=== PATIENT | female | born 1985 | race Caucasian/White ===

== ENCOUNTER 2017-11-07 21:50 | Emergency (ER) | payer MEDICARE, MEDICAID ==
[~2017-11-07] VITALS: Ht 162.6 cm; Wt 69.5 kg
[~2017-11-07 21:50] MED LIST: BENZ30CR2 PV; BUS15T PO; BUSP10TA11 PO; LOXA10CA PO; LURA20TA PO; MIRT30TA PO; PREN1TAB23 PO
[2017-11-07 22:11] LABS: CLARITY,URINE CLOUDY (Clear); COLOR,URINE RED (Yellow); URINE HCG NEGATIVE (NEG)
[2017-11-07 22:14] LABS: UA COLLECTION TYPE CLN CATCH MIDSTREAM
[2017-11-07 22:26] LABS: BACTERIA,URINE FEW /HPF (Neg); RBC,URINE TNTC /HPF (0-2); SQUAMOUS EPITHELIAL CELL,UR MODERATE /LPF (FEW)
[2017-11-07 22:27] LABS: WBC,URINE 50-100 /HPF (0-4)
[2017-11-07 22:45] LABS: BASOPHILS # (AUTO) 0.1 X10'3 (0-0.2); BASOPHILS % (AUTO) 0.7 % (0-1); EOSINOPHILS # (AUTO) 0.2 X10'3 (0-0.9); EOSINOPHILS % (AUTO) 2.5 % (0-6); HEMATOCRIT 40.9 % (35.0-45.0); HEMOGLOBIN 13.9 g/dl (12.0-16.0); LYMPHOCYTES % (AUTO) 26.5 % (21-51); MEAN CORPUSCULAR HEMOGLOBIN 30.1 PG (27.0-31.0); MEAN CORPUSCULAR HGB CONC 33.9 % (33.0-36.5); MEAN CORPUSCULAR VOLUME 88.6 FL (78-98); MEAN PLATELET VOLUME 7.6 FL (7.4-10.4); MONOCYTES # (AUTO) 0.6 X10'3 (0-0.9); NEUTROPHILS # (AUTO) 4.8 X10'3 (1.8-7.7); NEUTROPHILS % (AUTO) 62.3 % (42-75); PLATELET COUNT 260 X10'3 (140-440); RED BLOOD COUNT 4.62 X10'6 (4.20-5.60); RED CELL DISTRIBUTION WIDTH 14.5 % (11.5-14.5); WHITE BLOOD COUNT 7.7 X10'3 (4.5-11.0)
[2017-11-07 22:50] VITALS: BP 149/100
[2017-11-07 22:56] LABS: ALANINE AMINOTRANSFERASE 65 U/L (12-78); ALBUMIN 3.4 G/DL (3.4-5.0); ALBUMIN/GLOBULIN RATIO 0.8 (1.1-1.5); ALKALINE PHOSPHATASE 76 IU/L (46-116); ANION GAP 7 (8-16); ASPARTATE AMINO TRANSFERASE 53 U/L (10-37); BILIRUBIN,TOTAL 0.6 MG/DL (0.1-1.0); BLOOD UREA NITROGEN 9 MG/DL (7-18); BUN/CREATININE RATIO 9.1 (6.6-38.0); CALCIUM 8.5 MG/DL (8.5-10.1); CHLORIDE 105 MMOL/L (99-107); CREATININE 0.99 MG/DL (0.40-0.90); GLUCOSE 115 MG/DL (70-104); POTASSIUM 3.6 MMOL/L (3.5-5.1); SODIUM 142 MMOL/L (135-145); TOTAL CARBON DIOXIDE 29.9 MMOL/L (24-32); TOTAL PROTEIN 7.8 G/DL (6.4-8.2); eGFR 64 ML/MIN
[2017-11-07] MEDS ORDERED: azithromycin 250mg tablet PO ONE (23:00)
[2017-11-07] MEDS ORDERED: ciprofloxacin 250mg tablet PO ONE (23:00)
[2017-11-07] MEDS ORDERED: CIPR-259 PO (23:07)
== END 2017-11-07 23:36 | disposition home or self-care (01) ==
LOC: ER 21:50
DX: N39.0 Urinary tract infection, site not specified (principal); R31.9 Hematuria, unspecified; I10 Essential (primary) hypertension; E11.9 Type 2 diabetes mellitus without complications; F17.200 Nicotine dependence, unspecified, uncomplicated; F15.10 Other stimulant abuse, uncomplicated; Z56.0 Unemployment, unspecified; Z88.0 Allergy status to penicillin; Z79.899 Other long term (current) drug therapy
CPT/HCPCS: 36415; 80053; 81001; 81025; 85025; 87088; 87491; 99284

== ENCOUNTER 2017-12-25 09:29 | Emergency (ER) | payer MEDICARE, MEDICAID ==
[~2017-12-25] VITALS: Ht 578.2 cm; Wt 68.2 kg
[~2017-12-25 09:29] MED LIST changes: -BENZ30CR2 PV; -BUS15T PO; -BUSP10TA11 PO; +CEPH250T PO; -LOXA10CA PO; -LURA20TA PO; -MIRT30TA PO; +NO HOME MEDS; -PREN1TAB23 PO
[2017-12-25 10:13] LABS: BASOPHILS # (AUTO) 0.1 X10'3 (0-0.2); BASOPHILS % (AUTO) 0.6 % (0-1); EOSINOPHILS # (AUTO) 0.1 X10'3 (0-0.9); EOSINOPHILS % (AUTO) 1.3 % (0-6); HEMATOCRIT 43.3 % (35.0-45.0); HEMOGLOBIN 14.7 g/dl (12.0-16.0); LYMPHOCYTES # (AUTO) 2.5 X10'3 (1.1-4.8); LYMPHOCYTES % (AUTO) 26.2 % (21-51); MEAN CORPUSCULAR HEMOGLOBIN 30.1 PG (27.0-31.0); MEAN CORPUSCULAR HGB CONC 33.9 % (33.0-36.5); MEAN CORPUSCULAR VOLUME 88.7 FL (78-98); MEAN PLATELET VOLUME 7.4 FL (7.4-10.4); MONOCYTES # (AUTO) 0.1 X10'3 (0-0.9); MONOCYTES % (AUTO) 1.5 % (2-12); NEUTROPHILS # (AUTO) 6.8 X10'3 (1.8-7.7); NEUTROPHILS % (AUTO) 70.4 % (42-75); PLATELET COUNT 443 X10'3 (140-440); RED BLOOD COUNT 4.88 X10'6 (4.20-5.60); RED CELL DISTRIBUTION WIDTH 14.8 % (11.5-14.5); WHITE BLOOD COUNT 9.7 X10'3 (4.5-11.0)
[2017-12-25 10:15] LABS: PARTIAL THROMBOPLASTIN TIME 26 SECONDS (22-32); PROTHROMBIN TIME 10.4 SECONDS (9.0-12.0)
[2017-12-25 10:20] LABS: ALANINE AMINOTRANSFERASE 40 U/L (12-78); ALBUMIN/GLOBULIN RATIO 0.8 (1.1-1.5); ALKALINE PHOSPHATASE 87 IU/L (46-116); ANION GAP 12 (8-16); ASPARTATE AMINO TRANSFERASE 31 U/L (10-37); BILIRUBIN,TOTAL 0.5 MG/DL (0.1-1.0); BLOOD UREA NITROGEN 15 MG/DL (7-18); CALCIUM 9.2 MG/DL (8.5-10.1); CHLORIDE 101 MMOL/L (99-107); CREATININE 0.94 MG/DL (0.40-0.90); GLUCOSE 103 MG/DL (70-104); POTASSIUM 3.7 MMOL/L (3.5-5.1); SODIUM 139 MMOL/L (135-145); TOTAL CARBON DIOXIDE 25.9 MMOL/L (24-32); TOTAL PROTEIN 9.3 G/DL (6.4-8.2); eGFR 68 ML/MIN
[2017-12-25 10:30] VITALS: BP 152/102
[2017-12-25 10:56] LABS: TOTAL CELLS COUNTED 100
[2017-12-25 10:57] LABS: PLATELET ESTIMATE NORMAL
== END 2017-12-25 10:36 | disposition left against medical advice (07) ==
LOC: ER 09:30
DX: F41.9 Anxiety disorder, unspecified (principal); R53.1 Weakness; I10 Essential (primary) hypertension; E11.9 Type 2 diabetes mellitus without complications; R07.9 Chest pain, unspecified; R06.02 Shortness of breath; F15.90 Other stimulant use, unspecified, uncomplicated; Z98.890 Other specified postprocedural states; Z88.0 Allergy status to penicillin; Z88.1 Allergy status to other antibiotic agents; Z88.8 Allergy status to other drugs, medicaments and biological substances; Z79.899 Other long term (current) drug therapy; Z56.0 Unemployment, unspecified
CPT/HCPCS: 36415; 71045; 80053; 84484; 85025; 85610; 85730; 93005; 99285

== ENCOUNTER 2018-01-22 12:20 | Emergency (ER) | payer MEDICARE, MEDICAID ==
[~2018-01-22] VITALS: Ht 167.6 cm; Wt 69.0 kg
[2018-01-22 14:04] VITALS: BP 139/88
[2018-01-22 14:16] LABS: CLARITY,URINE SLIGHTLY CLOUDY (Clear); COLOR,URINE YELLOW (Yellow); GLUCOSE, URINE NEGATIVE (Neg); KETONES,URINE >=80 mg/dl (Neg); LEUKOCYTE ESTERASE ,URINE NEGATIVE (Neg); NITRITES, URINE NEGATIVE (Neg); OCCULT BLOOD,URINE NEGATIVE (Neg); PROTEIN,URINE 30 mg/dl (Neg); URINE HCG NEGATIVE (NEG); UROBILINOGEN,URINE >=8.0 E.U/dL (0.2-1.0)
[2018-01-22 14:18] LABS: UA COLLECTION TYPE CLN CATCH MIDSTREAM
[2018-01-22] MEDS ORDERED: CefTRIAXone 250MG IM Kit w/LIDOcaine IM ONE (14:30)
[2018-01-22] MEDS ORDERED: azithromycin 250mg tablet PO ONE (14:30)
[2018-01-22 14:34] LABS: RBC,URINE 0-2 /HPF (0-2)
[2018-01-22 14:35] LABS: BACTERIA,URINE NONE SEEN /HPF (Neg)
[2018-01-22 14:36] LABS: CAL OXALATE CRYSTALS 2+ /HPF (NEGATIVE); MUCUS STRANDS MANY /LPF (Neg); SQUAMOUS EPITHELIAL CELL,UR MODERATE /LPF (FEW)
[2018-01-22 14:37] LABS: URINE AMPHETAMINE SCREEN POSITIVE (Neg); URINE BARBITUATE SCREEN NEGATIVE (Neg); URINE BENZODIAZEPINES SCREEN NEGATIVE (Neg); URINE CANNABINOID SCREEN NEGATIVE (Neg); URINE COCAINE SCREEN NEGATIVE (Neg); URINE METHADONE SCREEN NEGATIVE (Neg); URINE OPIATE SCREEN NEGATIVE (Neg); URINE PHENCYCLIDINE SCREEN NEGATIVE (Neg)
== END 2018-01-22 14:46 | disposition home or self-care (01) ==
LOC: ER 12:20
DX: N89.8 Other specified noninflammatory disorders of vagina (principal); I10 Essential (primary) hypertension; E11.9 Type 2 diabetes mellitus without complications; F15.90 Other stimulant use, unspecified, uncomplicated; Z56.0 Unemployment, unspecified; Z88.0 Allergy status to penicillin; Z88.1 Allergy status to other antibiotic agents; Z79.2 Long term (current) use of antibiotics
CPT/HCPCS: 80305; 81001; 81025; 87088; 87210; 96372; 99284; J0696

== ENCOUNTER → 2018-04-06 | Emergency (ER) | payer MEDICARE, MEDICAID ==
[~2018-04-06] VITALS: Ht 162.6 cm; Wt 70.0 kg
[~2018-04-06] MED LIST changes: +DOXY100C43 PO; +DOXYCYCLINE 100MG CAPSULE PO STA; +IBUP-1985 PO; +[UNRECOGNIZED DRUG - CODE] PO; +azithromycin 250mg tablet PO STA
[2018-04-06 22:47] VITALS: BP 149/107
[2018-04-06 23:12] LABS: CLARITY,URINE SLIGHTLY CLOUDY (Clear); COLOR,URINE YELLOW (Yellow); GLUCOSE, URINE NEGATIVE (Neg); KETONES,URINE TRACE mg/dl (Neg); LEUKOCYTE ESTERASE ,URINE SMALL (Neg); NITRITES, URINE NEGATIVE (Neg); OCCULT BLOOD,URINE TRACE-INTACT (Neg); PH,URINE 6.5 (4.8-8.0); PROTEIN,URINE TRACE mg/dl (Neg)
[2018-04-06 23:13] LABS: BASOPHILS # (AUTO) 0.1 X10'3 (0-0.2); BASOPHILS % (AUTO) 1.6 % (0-1); EOSINOPHILS # (AUTO) 0.1 X10'3 (0-0.9); EOSINOPHILS % (AUTO) 2.5 % (0-6); HEMATOCRIT 39.6 % (35.0-45.0); HEMOGLOBIN 13.5 g/dl (12.0-16.0); LYMPHOCYTES # (AUTO) 1.9 X10'3 (1.1-4.8); LYMPHOCYTES % (AUTO) 36.6 % (21-51); MEAN CORPUSCULAR HEMOGLOBIN 29.7 PG (27.0-31.0); MEAN CORPUSCULAR HGB CONC 34.1 % (33.0-36.5); MEAN PLATELET VOLUME 8.1 FL (7.4-10.4); MONOCYTES # (AUTO) 0.4 X10'3 (0-0.9); MONOCYTES % (AUTO) 8.5 % (2-12); NEUTROPHILS # (AUTO) 2.6 X10'3 (1.8-7.7); NEUTROPHILS % (AUTO) 50.8 % (42-75); PLATELET COUNT 311 X10'3 (140-440); RED BLOOD COUNT 4.55 X10'6 (4.20-5.60); RED CELL DISTRIBUTION WIDTH 15.1 % (11.5-14.5); WHITE BLOOD COUNT 5.2 X10'3 (4.5-11.0)
[2018-04-06 23:15] LABS: UA COLLECTION TYPE CLN CATCH MIDSTREAM
[2018-04-06 23:31] LABS: ALANINE AMINOTRANSFERASE 94 U/L (12-78); ALBUMIN 3.3 G/DL (3.4-5.0); ALBUMIN/GLOBULIN RATIO 0.7 (1.1-1.5); ALKALINE PHOSPHATASE 80 IU/L (46-116); ANION GAP 6 (8-16); ASPARTATE AMINO TRANSFERASE 81 U/L (10-37); BILIRUBIN,TOTAL 0.3 MG/DL (0.1-1.0); BLOOD UREA NITROGEN 12 MG/DL (7-18); BUN/CREATININE RATIO 13.8 (6.6-38.0); CALCIUM 8.6 MG/DL (8.5-10.1); CHLORIDE 104 MMOL/L (99-107); CREATININE 0.87 MG/DL (0.40-0.90); GLUCOSE 95 MG/DL (70-104); SODIUM 138 MMOL/L (135-145); TOTAL CARBON DIOXIDE 28.1 MMOL/L (24-32); TOTAL PROTEIN 7.8 G/DL (6.4-8.2); eGFR 74 ML/MIN
[2018-04-07 00:47] LABS: BACTERIA,URINE 2+ /HPF (Neg); SQUAMOUS EPITHELIAL CELL,UR MODERATE /LPF (FEW)
[2018-04-07 00:48] LABS: MUCUS STRANDS FEW /LPF (Neg)
== END | disposition home or self-care (01) ==
LOC: ER 18:32
DX: N39.0 Urinary tract infection, site not specified (principal); I10 Essential (primary) hypertension; E11.9 Type 2 diabetes mellitus without complications; F15.90 Other stimulant use, unspecified, uncomplicated; Z56.0 Unemployment, unspecified; Z88.0 Allergy status to penicillin; Z79.899 Other long term (current) drug therapy
CPT/HCPCS: 36415; 80053; 81001; 85025; 87088; 99284

== ENCOUNTER 2018-06-14 21:25 | Emergency (ER) | payer MEDICARE, MEDICAID ==
[~2018-06-14] VITALS: Ht 162.6 cm; Wt 59.6 kg
[~2018-06-14 21:25] MED LIST changes: -DOXY100C43 PO; -DOXYCYCLINE 100MG CAPSULE PO STA; -azithromycin 250mg tablet PO STA
[2018-06-14 23:04] LABS: CLARITY,URINE CLOUDY (Clear); COLOR,URINE RED (Yellow); URINE HCG NEGATIVE (NEG)
[2018-06-14 23:15] LABS: UA COLLECTION TYPE CLN CATCH MIDSTREAM
[2018-06-14 23:16] LABS: SQUAMOUS EPITHELIAL CELL,UR MODERATE /LPF (FEW)
[2018-06-14 23:17] LABS: BACTERIA,URINE FEW /HPF (Neg); RBC,URINE TNTC /HPF (0-2)
[2018-06-14] MEDS ORDERED: normal saline 1000ml 1,000 ML IV ONE (23:38)
[2018-06-14] MEDS ORDERED: CefTRIAXone 2gm/D5W 50ml 50 ML IV ONE (23:40)
[2018-06-14] MEDS ORDERED: normal saline 1000ML IV soln IVB ONE (23:40)
[2018-06-15 00:52] LABS: EOSINOPHILS # (AUTO) 0.2 X10'3 (0-0.9); EOSINOPHILS % (AUTO) 1.8 % (0-6)
[2018-06-15 01:05] LABS: PARTIAL THROMBOPLASTIN TIME 25 SECONDS (22-32)
[2018-06-15 01:13] LABS: BASOPHILS # (AUTO) 0.1 X10'3 (0-0.2); BASOPHILS % (AUTO) 1.7 % (0-1); HEMATOCRIT 46.1 % (35.0-45.0); HEMOGLOBIN 15.9 g/dl (12.0-16.0); LYMPHOCYTES # (AUTO) 2.7 X10'3 (1.1-4.8); MEAN CORPUSCULAR HEMOGLOBIN 30.7 PG (27.0-31.0); MEAN CORPUSCULAR HGB CONC 34.4 % (33.0-36.5); MEAN CORPUSCULAR VOLUME 89.2 FL (78-98); MONOCYTES # (AUTO) 0.6 X10'3 (0-0.9); MONOCYTES % (AUTO) 7.1 % (2-12); NEUTROPHILS % (AUTO) 58.4 % (42-75); PLATELET COUNT 331 X10'3 (140-440); RED BLOOD COUNT 5.17 X10'6 (4.20-5.60); RED CELL DISTRIBUTION WIDTH 13.7 % (11.5-14.5); WHITE BLOOD COUNT 8.6 X10'3 (4.5-11.0)
[2018-06-15] MEDS ORDERED: CEPH250T PO (01:32)
[2018-06-15 01:47] VITALS: BP 112/71
== END 2018-06-15 01:52 | disposition home or self-care (01) ==
LOC: ER 21:26
DX: N30.91 Cystitis, unspecified with hematuria (principal); I10 Essential (primary) hypertension; E11.9 Type 2 diabetes mellitus without complications; F15.90 Other stimulant use, unspecified, uncomplicated; Z88.0 Allergy status to penicillin; Z79.2 Long term (current) use of antibiotics; Z79.899 Other long term (current) drug therapy; Z56.0 Unemployment, unspecified
CPT/HCPCS: 36415; 74176; 81001; 81025; 83605; 85025; 85610; 85730; 87040; 87088; 96365; 96366; 99284; J0696; J7030

== ENCOUNTER 2018-11-02 23:16 | Emergency (ER) | payer MEDICARE, MEDICAID ==
[~2018-11-02] VITALS: Ht 162.6 cm; Wt 60.5 kg
[2018-11-03 00:19] VITALS: BP 162/111
--- NOTE | 2018-11-03 01:15 | NUR ---
PT GIVEN WARM BLANKET, AWAITING ER MD
[2018-11-03] MEDS ORDERED: TETanus/Pertussis (Acell)/Diphther VAC/PF (Tdap-Adult) 0.5ml syringe IM ONE (01:50)
[2018-11-03] MEDS ORDERED: acetaminophen 325mg tablet PO ONE (01:50)
[2018-11-03] MEDS ORDERED: LIDOcaine 1.5% w/epinephrine 1:200,000 5ml ampul IJ ONE (01:50)
[2018-11-03] MEDS ORDERED: bacitracin 15gm ointment TP ONE (01:50)
[2018-11-03] MEDS ORDERED: CLIN150C8 PO (01:50)
[2018-11-03] MEDS ORDERED: clindamycin 150mg capsule PO ONE (01:50)
[2018-11-03] MEDS ORDERED: LIDOcaine 1% w/epiNEPHrine 1:200,000 30ml vial IM ONE (02:00)
--- NOTE | 2018-11-03 03:25 | NUR ---
pt refusing the tetnus booster, states she does not want a shot at this time. reports she had a tetnuw w in the past 10 yrs. had it eighter at [facility] or [facility].
== END 2018-11-03 03:43 | disposition home or self-care (01) ==
LOC: ER 23:16
DX: L02.412 Cutaneous abscess of left axilla (principal); I10 Essential (primary) hypertension; E11.9 Type 2 diabetes mellitus without complications; F15.90 Other stimulant use, unspecified, uncomplicated; Z88.0 Allergy status to penicillin; Z79.2 Long term (current) use of antibiotics; Z79.899 Other long term (current) drug therapy; Z56.0 Unemployment, unspecified; Z90.5 Acquired absence of kidney
CPT/HCPCS: 10060; 90715; 99284; J3490

== ENCOUNTER 2018-12-17 15:35 | Emergency (ER) | payer MEDICARE, MEDICAID ==
[~2018-12-17] VITALS: Ht 162.6 cm; Wt 63.6 kg
[~2018-12-17 15:35] MED LIST changes: +CLIN150C8 PO
[2018-12-17 15:48] VITALS: BP 140/99
[2018-12-17] MEDS ORDERED: LORazepam 1 MG tablet PO ONE (15:55)
[2018-12-17] MEDS ORDERED: triamcinolone acetonide 40mg/ml inj IM ONE (15:55)
[2018-12-17] MEDS ORDERED: diphenhydrAMINE 25mg capsule PO ONE (15:55)
[2018-12-17] MEDS ORDERED: LORA10TA7 PO (15:58)
[2018-12-17] MEDS ORDERED: PRED10TA23 PO (15:58)
== END 2018-12-17 16:21 | disposition home or self-care (01) ==
LOC: ER 15:36
DX: F41.9 Anxiety disorder, unspecified (principal); L23.7 Allergic contact dermatitis due to plants, except food; I10 Essential (primary) hypertension; E11.9 Type 2 diabetes mellitus without complications; F15.90 Other stimulant use, unspecified, uncomplicated; Z56.0 Unemployment, unspecified; Z88.0 Allergy status to penicillin
CPT/HCPCS: 96372; 99284; J3301; Q0163

== ENCOUNTER 2018-12-26 14:58 | Emergency (ER) | payer MEDICARE, MEDICAID ==
[~2018-12-26] VITALS: Ht 165.1 cm; Wt 65.0 kg
[~2018-12-26 14:58] MED LIST changes: +LORA10TA7 PO; +PRED10TA23 PO
[2018-12-26 15:23] VITALS: BP 125/54
[2018-12-26] MEDS ORDERED: LIDOcaine 1% w/epiNEPHrine 1:200,000 30ml vial IM ONE (17:20)
[2018-12-26] MEDS ORDERED: sulfamethoxazole/trimethoprim DS (800/160mg) tablet PO ONE (17:20)
[2018-12-26] MEDS ORDERED: SULF1TAB49 PO (18:25)
== END 2018-12-26 18:36 | disposition home or self-care (01) ==
LOC: ER 14:58
DX: H00.031 Abscess of right upper eyelid (principal); F15.90 Other stimulant use, unspecified, uncomplicated; I10 Essential (primary) hypertension; E11.9 Type 2 diabetes mellitus without complications; F17.200 Nicotine dependence, unspecified, uncomplicated; F11.90 Opioid use, unspecified, uncomplicated; Z56.0 Unemployment, unspecified; Z98.890 Other specified postprocedural states; Z88.0 Allergy status to penicillin; Z79.2 Long term (current) use of antibiotics; Z79.899 Other long term (current) drug therapy
CPT/HCPCS: 67700; 99284; J3490

== ENCOUNTER 2018-12-26 23:50 | Emergency (ER) | payer MEDICARE, MEDICAID ==
[~2018-12-26] VITALS: Ht 162.6 cm; Wt 61.3 kg
[~2018-12-26 23:50] MED LIST changes: +SULF1TAB49 PO
[2018-12-26 23:52] VITALS: BP 171/123
== END 2018-12-27 00:47 | disposition home or self-care (01) ==
LOC: ER 23:50
DX: H05.011 Cellulitis of right orbit (principal); F15.10 Other stimulant abuse, uncomplicated; I10 Essential (primary) hypertension; E11.9 Type 2 diabetes mellitus without complications; Z86.14 Personal history of Methicillin resistant Staphylococcus aureus infection; F11.90 Opioid use, unspecified, uncomplicated; Z88.0 Allergy status to penicillin; Z79.899 Other long term (current) drug therapy; Z59.0 Homelessness; Z56.0 Unemployment, unspecified
CPT/HCPCS: 99283

== ENCOUNTER 2019-03-17 22:30 | Emergency (ER) | payer MEDICARE, MEDICAID ==
[~2019-03-17] VITALS: Ht 162.6 cm; Wt 56.8 kg
[~2019-03-17 22:30] MED LIST changes: -PRED10TA23 PO; -SULF1TAB49 PO
--- NOTE | 2019-03-18 01:28 | NUR ---
pt reports she has anxiety and will pick at her face. She smokes heroin with last use this morning.
[2019-03-18 03:17] LABS: BASOPHILS # (AUTO) 0.1 X10'3 (0-0.2); BASOPHILS % (AUTO) 0.7 % (0-1); EOSINOPHILS # (AUTO) 0.3 X10'3 (0-0.9); EOSINOPHILS % (AUTO) 3.6 % (0-6); HEMOGLOBIN 12.9 g/dl (12.0-16.0); LYMPHOCYTES # (AUTO) 2.6 X10'3 (1.1-4.8); LYMPHOCYTES % (AUTO) 37.4 % (21-51); MEAN CORPUSCULAR HEMOGLOBIN 30.1 PG (27.0-31.0); MEAN CORPUSCULAR HGB CONC 33.9 g/dL (33.0-36.5); MEAN CORPUSCULAR VOLUME 88.8 FL (78-98); MEAN PLATELET VOLUME 7.7 FL (7.4-10.4); MONOCYTES # (AUTO) 0.8 X10'3 (0-0.9); MONOCYTES % (AUTO) 11.1 % (2-12); NEUTROPHILS # (AUTO) 3.3 X10'3 (1.8-7.7); NEUTROPHILS % (AUTO) 47.2 % (42-75); PLATELET COUNT 267 X10'3 (140-440); RED BLOOD COUNT 4.28 X10'6 (4.20-5.60); RED CELL DISTRIBUTION WIDTH 14.6 % (11.5-14.5); WHITE BLOOD COUNT 7.1 X10'3 (4.5-11.0)
[2019-03-18 03:28] LABS: ALANINE AMINOTRANSFERASE 117 U/L (12-78); ALBUMIN 3.3 G/DL (3.4-5.0); ALBUMIN/GLOBULIN RATIO 0.8 (1.1-1.5); ALKALINE PHOSPHATASE 72 IU/L (46-116); ANION GAP 8 (8-16); ASPARTATE AMINO TRANSFERASE 79 U/L (10-37); BILIRUBIN,TOTAL 0.4 MG/DL (0.1-1.0); BLOOD UREA NITROGEN 14 MG/DL (7-18); BUN/CREATININE RATIO 21.5 (6.6-38.0); CALCIUM 8.3 MG/DL (8.5-10.1); CHLORIDE 104 MMOL/L (99-107); CREATININE 0.65 MG/DL (0.40-0.90); GLUCOSE 91 MG/DL (70-104); POTASSIUM 3.8 MMOL/L (3.5-5.1); SODIUM 139 MMOL/L (135-145); TOTAL CARBON DIOXIDE 26.7 MMOL/L (24-32); TOTAL PROTEIN 7.2 G/DL (6.4-8.2); eGFR > 90 ML/MIN
[2019-03-18 03:39] LABS: MAGNESIUM 1.7 MG/DL (1.5-2.4)
[2019-03-18 04:15] VITALS: BP 167/116
[2019-03-18] MEDS ORDERED: clindamycin 150mg capsule PO ONE (04:15)
[2019-03-18 04:25] LABS: URINE HCG NEGATIVE (NEG)
[2019-03-18 04:34] LABS: CLARITY,URINE SLIGHTLY CLOUDY (Clear); COLOR,URINE YELLOW (Yellow); GLUCOSE, URINE NEGATIVE (Neg); KETONES,URINE NEGATIVE (Neg); LEUKOCYTE ESTERASE ,URINE TRACE (Neg); NITRITES, URINE NEGATIVE (Neg); OCCULT BLOOD,URINE NEGATIVE (Neg); PROTEIN,URINE TRACE mg/dl (Neg)
[2019-03-18 04:45] LABS: UA COLLECTION TYPE VOIDED
[2019-03-18 04:49] LABS: RBC,URINE 0-2 /HPF (0-2); SQUAMOUS EPITHELIAL CELL,UR MANY /LPF (FEW)
[2019-03-18 04:50] LABS: BACTERIA,URINE 2+ /HPF (Neg); MUCUS STRANDS MODERATE /LPF (Neg)
[2019-03-18] MEDS ORDERED: NITR100C6 PO (05:04)
[2019-03-18] MEDS ORDERED: CLIN300C70 PO (05:04)
[2019-03-18] MEDS ORDERED: MUPI22OI30 TOP (05:04)
[2019-03-22] MEDS ORDERED: CLIN300C54 PO (03:14)
[2019-03-22] MEDS ORDERED: IBUP-1986 PO (03:14)
== END 2019-03-18 05:26 | disposition home or self-care (01) ==
LOC: ER 22:31
DX: R22.0 Localized swelling, mass and lump, head (principal); N39.0 Urinary tract infection, site not specified; F19.10 Other psychoactive substance abuse, uncomplicated; R42 Dizziness and giddiness; I10 Essential (primary) hypertension; E11.9 Type 2 diabetes mellitus without complications; F41.9 Anxiety disorder, unspecified; F15.90 Other stimulant use, unspecified, uncomplicated; F11.90 Opioid use, unspecified, uncomplicated; Z56.0 Unemployment, unspecified; Z86.14 Personal history of Methicillin resistant Staphylococcus aureus infection; Z59.0 Homelessness; Z88.0 Allergy status to penicillin; Z79.2 Long term (current) use of antibiotics; Z79.899 Other long term (current) drug therapy
CPT/HCPCS: 36415; 71045; 80053; 81001; 81025; 83735; 83880; 84484; 85025; 85610; 93005; 99284

== ENCOUNTER → 2019-03-22 | Emergency (ER) | payer MEDICARE, MEDICAID ==
[~2019-03-22] VITALS: Ht 160 cm; Wt 56.8 kg
[~2019-03-22] MED LIST changes: +CLIN300C54 PO; +CLIN300C70 PO; +IBUP-1986 PO; +MUPI22OI30 TOP; +NITR100C6 PO; +clindamycin 150mg capsule PO ONE; +ibuprofen tablet 400 MG TABLET PO ONE
[2019-03-22 03:03] VITALS: BP 165/109
== END | disposition home or self-care (01) ==
LOC: ER 03:00
DX: K02.9 Dental caries, unspecified (principal); K08.89 Other specified disorders of teeth and supporting structures; I10 Essential (primary) hypertension; E11.9 Type 2 diabetes mellitus without complications; F15.90 Other stimulant use, unspecified, uncomplicated; F11.90 Opioid use, unspecified, uncomplicated; Z59.0 Homelessness; Z56.0 Unemployment, unspecified; Z86.14 Personal history of Methicillin resistant Staphylococcus aureus infection; Z88.0 Allergy status to penicillin; Z79.899 Other long term (current) drug therapy
CPT/HCPCS: 99283

== ENCOUNTER 2021-05-16 12:19 | Emergency (ER) | payer MEDICARE, MEDICAID ==
[~2021-05-16] VITALS: Ht 162.6 cm; Wt 65.0 kg
[~2021-05-16 12:19] MED LIST changes: -CEPH250T PO; -CLIN300C54 PO; -CLIN300C70 PO; -MUPI22OI30 TOP; -clindamycin 150mg capsule PO ONE; -ibuprofen tablet 400 MG TABLET PO ONE
[2021-05-16 12:23] VITALS: BP 154/106
[2021-05-16] MEDS ORDERED: IBUP-1984 PO (13:32)
[2021-05-16] MEDS ORDERED: CLIN300C70 PO (13:32)
== END 2021-05-16 13:20 | disposition home or self-care (01) ==
LOC: ER 12:19
DX: L03.211 Cellulitis of face (principal); Z87.81 Personal history of (healed) traumatic fracture; I10 Essential (primary) hypertension; J45.909 Unspecified asthma, uncomplicated; E11.9 Type 2 diabetes mellitus without complications; F15.90 Other stimulant use, unspecified, uncomplicated; F11.90 Opioid use, unspecified, uncomplicated; Z87.440 Personal history of urinary (tract) infections; Z86.14 Personal history of Methicillin resistant Staphylococcus aureus infection; Z72.89 Other problems related to lifestyle; Z56.0 Unemployment, unspecified; Z59.00 Homelessness unspecified; Z90.5 Acquired absence of kidney; Z79.2 Long term (current) use of antibiotics; Z79.899 Other long term (current) drug therapy; Z88.0 Allergy status to penicillin
CPT/HCPCS: 99283

== ENCOUNTER 2022-05-17 20:36 | Emergency (ER) | payer MEDICARE, MEDICAID ==
[~2022-05-17] VITALS: Ht 162.6 cm; Wt 59.1 kg
[~2022-05-17 20:36] MED LIST changes: -CLIN150C8 PO; -IBUP-1985 PO; -IBUP-1986 PO; -LORA10TA7 PO; -NITR100C6 PO; -[UNRECOGNIZED DRUG - CODE] PO
[2022-05-17 20:51] VITALS: BP 165/117
[2022-05-17] MEDS ORDERED: nitrofuran monohydrate/nitrofuran macrocrysal 100 MG (MacroBID) capsule PO ONE (22:10)
[2022-05-17] MEDS ORDERED: NITR100C6 PO (22:13)
--- NOTE | 2022-05-17 22:29 | NUR ---
po med given
== END 2022-05-17 22:29 | disposition home or self-care (01) ==
LOC: ER 20:37
DX: N39.0 Urinary tract infection, site not specified (principal); I10 Essential (primary) hypertension; E11.9 Type 2 diabetes mellitus without complications; F41.9 Anxiety disorder, unspecified; F15.90 Other stimulant use, unspecified, uncomplicated; F11.90 Opioid use, unspecified, uncomplicated; Z88.0 Allergy status to penicillin; Z59.00 Homelessness unspecified; Z56.0 Unemployment, unspecified; Z98.890 Other specified postprocedural states
CPT/HCPCS: 99283

== ENCOUNTER 2022-07-30 01:47 | Emergency (ER) | payer MEDICARE, MEDICAID ==
[~2022-07-30] VITALS: Ht 162.6 cm; Wt 65.1 kg
[~2022-07-30 01:47] MED LIST changes: +NITR100C6 PO
[2022-07-30 02:02] VITALS: BP 148/101
[2022-07-30] MEDS ORDERED: SULF1TAB49 PO (02:57)
[2022-07-30] MEDS ORDERED: CEPH-585 PO (02:57)
== END 2022-07-30 03:08 | disposition home or self-care (01) ==
LOC: ER 01:49
DX: L02.01 Cutaneous abscess of face (principal); L03.211 Cellulitis of face; I10 Essential (primary) hypertension; E11.9 Type 2 diabetes mellitus without complications; F41.9 Anxiety disorder, unspecified; Z86.14 Personal history of Methicillin resistant Staphylococcus aureus infection; Z59.00 Homelessness unspecified; Z56.0 Unemployment, unspecified; Z88.0 Allergy status to penicillin; Z79.1 Long term (current) use of non-steroidal anti-inflammatories (NSAID); Z79.2 Long term (current) use of antibiotics; Z86.2 Personal history of diseases of the blood and blood-forming organs and certain disorders involving the immune mechanism
CPT/HCPCS: 99284

== ENCOUNTER 2022-11-06 22:45 | Emergency (ER) | payer MEDICARE, MEDICAID ==
[~2022-11-06] VITALS: Ht 162.6 cm; Wt 65.9 kg
[~2022-11-06 22:45] MED LIST changes: +CEPH-585 PO
[2022-11-06] MEDS ORDERED: cloNIDine 0.1 mg tablet PO ONE (23:15)
[2022-11-06] MEDS ORDERED: LISI10TA27 PO (23:16)
[2022-11-06] MEDS ORDERED: CIPR2.5D21 LEFTEYE (23:16)
[2022-11-06 23:49] VITALS: BP 150/103
== END 2022-11-06 23:58 | disposition home or self-care (01) ==
LOC: ER 22:46
DX: H00.015 Hordeolum externum left lower eyelid (principal); I10 Essential (primary) hypertension; E11.9 Type 2 diabetes mellitus without complications; F15.20 Other stimulant dependence, uncomplicated; Z88.0 Allergy status to penicillin; Z59.00 Homelessness unspecified; Z56.0 Unemployment, unspecified
CPT/HCPCS: 99283

== ENCOUNTER 2023-02-03 01:02 | Emergency (ER) | payer MEDICAID, MEDICARE ==
[~2023-02-03 01:02] MED LIST changes: +LISI10TA27 PO
[2023-02-04] MEDS ORDERED: CLIN-214 PO (00:55)
[2023-02-04] MEDS ORDERED: SULF1TAB49 PO (01:00)
== END 2023-02-03 01:13 | disposition left against medical advice (07) ==
LOC: ER 01:03
DX: B99.9 Unspecified infectious disease (principal); Z53.21 Procedure and treatment not carried out due to patient leaving prior to being seen by health care provider

== ENCOUNTER 2023-02-04 00:02 | Emergency (ER) | payer MEDICAID ==
[~2023-02-04] VITALS: Ht 162.6 cm; Wt 61.4 kg
[2023-02-04 00:12] VITALS: BP 133/89
[2023-02-04] MEDS ORDERED: CLIN-214 PO (00:55)
[2023-02-04] MEDS ORDERED: clindamycin 150mg capsule PO ONE (00:55)
[2023-02-04] MEDS ORDERED: SULF1TAB49 PO (01:00)
[2023-02-04] MEDS ORDERED: sulfamethoxazole/trimethoprim DS (800/160mg) tablet PO ONE (01:00)
--- NOTE | 2023-02-04 01:00 | NUR ---
CLINDAMYCIN HELD PER MD. PT REPORTS ALLERGY TO [facility].
== END 2023-02-04 01:17 | disposition home or self-care (01) ==
LOC: ER 00:03
DX: L02.411 Cutaneous abscess of right axilla (principal); I10 Essential (primary) hypertension; E11.9 Type 2 diabetes mellitus without complications; F15.90 Other stimulant use, unspecified, uncomplicated; Z88.0 Allergy status to penicillin; Z88.1 Allergy status to other antibiotic agents
CPT/HCPCS: 10060; 99283; 99284

== ENCOUNTER 2023-02-28 05:48 | Emergency (ER) | payer MEDICAID ==
[~2023-02-28] VITALS: Ht 162.6 cm; Wt 61.4 kg
[~2023-02-28 05:48] MED LIST changes: +CLIN-214 PO
[2023-02-28 05:54] VITALS: BP 182/98; PULSE 94; TEMP 98.9; O2SAT 100
[2023-02-28 06:30] LABS: CLARITY,URINE CLOUDY (Clear); COLOR,URINE YELLOW (Yellow); GLUCOSE, URINE NEGATIVE (Neg); KETONES,URINE NEGATIVE (Neg); LEUKOCYTE ESTERASE ,URINE LARGE (Neg); NITRITES, URINE NEGATIVE (Neg); OCCULT BLOOD,URINE SMALL (Neg); PROTEIN,URINE TRACE mg/dl (Neg)
[2023-02-28 06:36] LABS: URINE HCG NEGATIVE (NEG)
[2023-02-28 06:45] LABS: UA COLLECTION TYPE CLN CATCH MIDSTREAM
[2023-02-28 06:46] LABS: SQUAMOUS EPITHELIAL CELL,UR MANY /LPF (FEW)
[2023-02-28 06:50] LABS: BACTERIA,URINE 2+ /HPF (Neg)
[2023-02-28 06:51] LABS: WBC,URINE 50-100 /HPF (0-4)
--- NOTE | 2023-02-28 06:56 | NUR ---
URINE REJECTED FOR CULTURE
[2023-02-28 07:16] LABS: BASOPHILS % (AUTO) 0.7 % (0-1); EOSINOPHILS # (AUTO) 0.2 X10'3 (0-0.9); EOSINOPHILS % (AUTO) 3.8 % (0-6); HEMATOCRIT 38.8 % (35.0-45.0); HEMOGLOBIN 13.2 g/dl (12.0-16.0); LYMPHOCYTES # (AUTO) 2.2 X10'3 (1.1-4.8); LYMPHOCYTES % (AUTO) 42.8 % (21-51); MEAN CORPUSCULAR HEMOGLOBIN 31.3 PG (27.0-31.0); MEAN CORPUSCULAR HGB CONC 33.9 g/dL (33.0-36.5); MEAN CORPUSCULAR VOLUME 92.1 FL (78-98); MEAN PLATELET VOLUME 7.4 FL (7.4-10.4); MONOCYTES # (AUTO) 0.4 X10'3 (0-0.9); MONOCYTES % (AUTO) 8.9 % (2-12); NEUTROPHILS # (AUTO) 2.2 X10'3 (1.8-7.7); NEUTROPHILS % (AUTO) 43.8 % (42-75); PLATELET COUNT 176 X10'3 (140-440); RED BLOOD COUNT 4.21 X10'6 (4.20-5.60); RED CELL DISTRIBUTION WIDTH 14.6 % (11.5-14.5); WHITE BLOOD COUNT 5.1 X10'3 (4.5-11.0)
[2023-02-28 07:33] LABS: ALANINE AMINOTRANSFERASE 357 U/L (12-78); ALBUMIN 3.4 G/DL (3.4-5.0); ALBUMIN/GLOBULIN RATIO 0.7 (1.1-1.5); ALKALINE PHOSPHATASE 75 IU/L (46-116); ANION GAP 8 (8-16); ASPARTATE AMINO TRANSFERASE 226 U/L (10-37); BILIRUBIN,TOTAL 0.3 MG/DL (0.1-1.0); BLOOD UREA NITROGEN 16 MG/DL (7-18); BUN/CREATININE RATIO 23.5 (10.0-20.0); CALCIUM 8.5 MG/DL (8.5-10.1); CHLORIDE 105 MMOL/L (99-107); CREATININE 0.68 MG/DL (0.40-0.90); LIPASE 73 U/L (73-393); POTASSIUM 3.8 MMOL/L (3.5-5.1); SODIUM 140 MMOL/L (135-145); TOTAL CARBON DIOXIDE 27.4 MMOL/L (24-32); TOTAL PROTEIN 8.3 G/DL (6.4-8.2); eGFR > 90 ML/MIN
[2023-02-28 07:34] LABS: GLUCOSE 114 MG/DL (70-104)
[2023-02-28] MEDS ORDERED: CEPH-585 PO (12:13)
[2023-02-28 12:27] VITALS: RESP 18
== END 2023-02-28 12:49 | disposition home or self-care (01) ==
LOC: ER 05:49
DX: N12 Tubulo-interstitial nephritis, not specified as acute or chronic (principal); L02.411 Cutaneous abscess of right axilla; I10 Essential (primary) hypertension; D64.9 Anemia, unspecified; E11.9 Type 2 diabetes mellitus without complications; F41.9 Anxiety disorder, unspecified; F12.10 Cannabis abuse, uncomplicated; F15.10 Other stimulant abuse, uncomplicated; Z59.00 Homelessness unspecified; Z56.0 Unemployment, unspecified
CPT/HCPCS: 36415; 80053; 81001; 81025; 83690; 85025; 99283

== ENCOUNTER 2023-05-14 18:48 | Emergency (ER) | payer MEDICAID ==
[~2023-05-14] VITALS: Ht 162.6 cm; Wt 59.1 kg
[2023-05-14 19:35] VITALS: BP 165/108; PULSE 94; RESP 14; TEMP 98.5; O2SAT 93
[2023-05-14 20:35] LABS: BILIRUBIN,URINE NEGATIVE (Neg); CLARITY,URINE CLOUDY (Clear); COLOR,URINE YELLOW (Yellow); GLUCOSE, URINE NEGATIVE (Neg); KETONES,URINE NEGATIVE (Neg); LEUKOCYTE ESTERASE ,URINE LARGE (Neg); NITRITES, URINE NEGATIVE (Neg); OCCULT BLOOD,URINE SMALL (Neg); PROTEIN,URINE NEGATIVE (Neg); URINE HCG NEGATIVE (NEG)
[2023-05-14 20:45] LABS: UA COLLECTION TYPE CLN CATCH MIDSTREAM
[2023-05-14 20:47] LABS: MUCUS STRANDS NONE SEEN /LPF (Neg); SQUAMOUS EPITHELIAL CELL,UR FEW /LPF (FEW); WBC,URINE TNTC /HPF (0-4)
[2023-05-14 20:48] LABS: BACTERIA,URINE 3+ /HPF (Neg)
[2023-05-14 20:49] LABS: TRANSITIONAL EPI CELLS,URINE FEW /HPF; WBC CLUMPS,URINE FEW /HPF (NEGATIVE)
[2023-05-14] MEDS ORDERED: CEPH-585 PO (20:54)
[2023-05-14] MEDS ORDERED: CIPR-259 PO (21:07)
== END 2023-05-14 21:16 ==
LOC: ER 18:49
DX: N39.0 Urinary tract infection, site not specified (principal); R59.0 Localized enlarged lymph nodes; F15.10 Other stimulant abuse, uncomplicated; I10 Essential (primary) hypertension; E11.9 Type 2 diabetes mellitus without complications; F12.90 Cannabis use, unspecified, uncomplicated; F15.90 Other stimulant use, unspecified, uncomplicated; F11.90 Opioid use, unspecified, uncomplicated; Z56.0 Unemployment, unspecified; Z59.00 Homelessness unspecified; Z72.89 Other problems related to lifestyle; Z86.14 Personal history of Methicillin resistant Staphylococcus aureus infection; Z88.0 Allergy status to penicillin; Z88.1 Allergy status to other antibiotic agents; Z79.2 Long term (current) use of antibiotics; Z79.899 Other long term (current) drug therapy
CPT/HCPCS: 81001; 81025; 87077; 87088; 87186; 99283

== ENCOUNTER 2023-10-17 19:48 | Emergency (ER) | payer MEDICAID, OTHER ==
[~2023-10-17] VITALS: Ht 162.6 cm; Wt 58.0 kg
[2023-10-17 19:50] VITALS: BP 179/125; PULSE 94; RESP 16; TEMP 98.9; O2SAT 99
[2023-10-17] MEDS ORDERED: FLUT16SP2 BOTHNARES (20:56)
[2023-10-17] MEDS ORDERED: PSEU120T56 PO (20:56)
[2023-10-17] MEDS ORDERED: IBUP-1985 PO (20:56)
[2023-10-17] MEDS ORDERED: LEVO-65 PO (20:56)
[2023-10-17] MEDS: CefTRIAXone 1000mg IM Kit (w/lidocaine diluent) IM ONE (21:09)
== END 2023-10-17 21:17 | disposition home or self-care (01) ==
LOC: ER 19:49
DX: J32.9 Chronic sinusitis, unspecified (principal); E11.9 Type 2 diabetes mellitus without complications; D64.9 Anemia, unspecified; F31.9 Bipolar disorder, unspecified; F12.10 Cannabis abuse, uncomplicated; F15.10 Other stimulant abuse, uncomplicated; I10 Essential (primary) hypertension; Z59.00 Homelessness unspecified; Z56.0 Unemployment, unspecified; Z88.0 Allergy status to penicillin; Z88.1 Allergy status to other antibiotic agents; Z79.899 Other long term (current) drug therapy
CPT/HCPCS: 96372; 99283; J0696

== ENCOUNTER 2024-06-29 21:14 | Inpatient (IN) | payer MEDICAID ==
[~2024-06-29] VITALS: Ht 162.6 cm; Wt 58.1 kg
[~2024-06-29 21:14] MED LIST changes: -CEPH-585 PO; +FLUT16SP2 BOTHNARES; +IBUP-1985 PO; +PSEU120T56 PO
[2024-06-29 22:00] LABS: BASOPHILS % (AUTO) 0.2 % (0-1); EOSINOPHILS # (AUTO) 0.1 X10'3 (0-0.9); EOSINOPHILS % (AUTO) 0.5 % (0-6); HEMATOCRIT 37.6 % (35.0-45.0); HEMOGLOBIN 12.9 g/dl (12.0-16.0); LYMPHOCYTES # (AUTO) 2.7 X10'3 (1.1-4.8); LYMPHOCYTES % (AUTO) 13.5 % (21-51); MEAN CORPUSCULAR HEMOGLOBIN 30.7 PG (27.0-31.0); MEAN CORPUSCULAR HGB CONC 34.2 g/dL (33.0-36.5); MEAN CORPUSCULAR VOLUME 89.8 FL (78-98); MEAN PLATELET VOLUME 8.5 FL (7.4-10.4); MONOCYTES # (AUTO) 1.6 X10'3 (0-0.9); MONOCYTES % (AUTO) 7.9 % (2-12); NEUTROPHILS # (AUTO) 15.6 X10'3 (1.8-7.7); NEUTROPHILS % (AUTO) 77.9 % (42-75); PLATELET COUNT 240 X10'3 (140-440); RED BLOOD COUNT 4.19 X10'6 (4.20-5.60)
[2024-06-29 22:11] LABS: BILIRUBIN,URINE NEGATIVE (Neg); CLARITY,URINE SLIGHTLY CLOUDY (Clear); COLOR,URINE YELLOW (Yellow); GLUCOSE, URINE NEGATIVE (Neg); KETONES,URINE NEGATIVE (Neg); LEUKOCYTE ESTERASE ,URINE LARGE (Neg); NITRITES, URINE NEGATIVE (Neg); OCCULT BLOOD,URINE SMALL (Neg); PROTEIN,URINE 100 mg/dl (Neg)
[2024-06-29 22:30] LABS: URINE HCG NEGATIVE (NEG)
[2024-06-29 22:36] LABS: UA COLLECTION TYPE VOIDED
[2024-06-29 22:37] LABS: BACTERIA,URINE 4+ /HPF (Neg); MUCUS STRANDS MODERATE /LPF (Neg); SQUAMOUS EPITHELIAL CELL,UR MODERATE /LPF (FEW); WBC CLUMPS,URINE FEW /HPF (NEGATIVE); WBC,URINE TNTC /HPF (0-4)
[2024-06-29 22:38] LABS: ANION GAP 13 (8-16); CHLORIDE 95 MMOL/L (99-107); GLUCOSE 116 MG/DL (70-104); SODIUM 128 MMOL/L (135-145); TOTAL CARBON DIOXIDE 19.7 MMOL/L (24-32)
[2024-06-29 22:39] LABS: ALANINE AMINOTRANSFERASE 30 U/L (12-78); ALBUMIN 2.6 G/DL (3.4-5.0); ALBUMIN/GLOBULIN RATIO 0.4 (1.1-1.5); ALKALINE PHOSPHATASE 107 IU/L (46-116); ASPARTATE AMINO TRANSFERASE 24 U/L (10-37); BILIRUBIN,TOTAL 0.6 MG/DL (0.1-1.0); BLOOD UREA NITROGEN 61 MG/DL (7-18); BUN/CREATININE RATIO 12.7 (10.0-20.0); CALCIUM 8.7 MG/DL (8.5-10.1); LIPASE 27 U/L (16-77); eCRCL 13 ML/MIN; eGFR 10 ML/MIN
[2024-06-29 22:47] LABS: POTASSIUM 3.9 MMOL/L (3.5-5.1)
[2024-06-29] MEDS: normal saline 1000ML IV soln IVB ONE (23:54)
[2024-06-29] MEDS: CefTRIAXone 2gm/D5W 50ml BAG 50 ML IV ONE (23:54)
[2024-06-30] VITALS (17 sets, daily range): BP systolic 94–130; BP diastolic 60–84; PULSE 77–119; RESP 12–18; TEMP 97.5–98.1; O2SAT 96–100
[2024-06-30] MEDS ORDERED: magnesium Cl slow-release 64mg tablet PO PRN (01:50)
[2024-06-30] MEDS ORDERED: HYDROcodone/acetaminophen 5mg/325mg tablet PO PRN (01:50)
[2024-06-30] MEDS ORDERED: magnesium sulf-water 4G/100mL 100 ML IV PRN (01:50)
[2024-06-30] MEDS ORDERED: morphine 2 MG/ML inj. syringe IV PRN ×2 (01:50)
[2024-06-30] MEDS ORDERED: mag hydrox/Alum hydrox/simeth 30ml oral suspension PO PRN (01:50)
[2024-06-30] MEDS ORDERED: potassium Cl 20 mEq SR tablet PO PRN ×2 (01:50)
[2024-06-30] MEDS ORDERED: acetaminophen 325mg tablet PO PRN ×2 (01:50)
[2024-06-30] MEDS ORDERED: magnesium sulf-water 2g/50mL 50 ML IV PRN (01:50)
[2024-06-30] MEDS ORDERED: magnesium hydroxide 30ml (MOM) UD suspension PO PRN (01:50)
[2024-06-30] MEDS: ALPRAZolam 0.5mg tablet PO ONE ×2 (02:23→22:09)
[2024-06-30 02:32] LABS: HEMOGLOBIN A1C 5.8 % (4.5-6.2)
[2024-06-30 02:43] LABS: MAGNESIUM 1.6 MG/DL (1.5-2.4); POTASSIUM 3.2 MMOL/L (3.5-5.1); PRO BRAIN NATRIURETIC PEPTIDE 1341 PG/ML (0-125)
[2024-06-30] MEDS: normal saline 1000ml 1,000 ML IV SCH (02:47)
[2024-06-30 04:59] LABS: CHLORIDE,URINE RANDOM < 50 MEQ/L; SODIUM,URINE RANDOM 43 MEQ/L; URINE AMPHETAMINE SCREEN POSITIVE (Neg); URINE BARBITUATE SCREEN NEGATIVE (Neg); URINE BENZODIAZEPINES SCREEN NEGATIVE (Neg); URINE CANNABINOID SCREEN NEGATIVE (Neg); URINE COCAINE SCREEN NEGATIVE (Neg); URINE METHADONE SCREEN NEGATIVE (Neg); URINE OPIATE SCREEN NEGATIVE (Neg); URINE PHENCYCLIDINE SCREEN NEGATIVE (Neg)
[2024-06-30] MEDS ORDERED: labetalol 20mg/4ml (5mg/ml) syringe IV PRN (05:45)
[2024-06-30] MEDS ORDERED: fentaNYL/PF 50MCG/1 ML 2ML syringe IV PRN ×2 (05:45)
[2024-06-30] MEDS ORDERED: HYDROmorphone/PF 0.2 MG/ML SYRINGE IV PRN ×2 (05:45)
[2024-06-30] MEDS ORDERED: ondansetron/PF 4mg/2ml inj IV PRN (05:45)
[2024-06-30] MEDS ORDERED: hydrALAZINE 20mg/ml inj. IV PRN (05:45)
[2024-06-30] MEDS: potassium Cl 40MEQ/1/2NS 520ml 520 ML IV PRN (06:01)
[2024-06-30] MEDS ORDERED: fentaNYL/PF 50MCG/1 ML 2ML syringe ONE (06:41)
[2024-06-30] MEDS ORDERED: midazolam 1 mg/ML 2ml injection ONE (06:41)
[2024-06-30] MEDS ORDERED: ondansetron/PF 4mg/2ml inj ONE (06:43)
[2024-06-30] MEDS ORDERED: iohexol 300 MG/1 ML 50ml polymer ONE (06:43)
[2024-06-30] MEDS ORDERED: LIDOcaine 2% (20mg/ml) 5ml vial ONE (06:43)
[2024-06-30] MEDS ORDERED: dexamethasone sod phosphate 4mg/ml inj. ONE (06:43)
[2024-06-30] MEDS ORDERED: propofol inj 20 ML IV ONE (06:43)
[2024-06-30] MEDS ORDERED: phenazopyridine 100mg tablet PO PRN (07:25)
[2024-06-30] MEDS ORDERED: sevoflurane 250ml liquid IH ONE (07:28)
[2024-06-30] MEDS: K and/or MAG REPLACEMENT MC SCH (07:29)
[2024-06-30] MEDS: docusate sod 100mg capsule PO SCH (07:29)
[2024-06-30] MEDS: tamsulosin 0.4mg capsule PO SCH (07:30)
[2024-06-30] MEDS: ringers solution, lacted 1,000 ML IV SCH (08:18)
[2024-06-30] MEDS: nicotine 21mg patch - 24 hr TD SCH (09:35)
[2024-06-30 09:44] LABS: BASOPHILS % (AUTO) 0.3 % (0-1); EOSINOPHILS # (AUTO) 0.1 X10'3 (0-0.9); EOSINOPHILS % (AUTO) 0.8 % (0-6); HEMATOCRIT 35.3 % (35.0-45.0); HEMOGLOBIN 11.9 g/dl (12.0-16.0); LYMPHOCYTES # (AUTO) 1.1 X10'3 (1.1-4.8); MEAN CORPUSCULAR HEMOGLOBIN 30.5 PG (27.0-31.0); MEAN CORPUSCULAR HGB CONC 33.7 g/dL (33.0-36.5); MEAN CORPUSCULAR VOLUME 90.4 FL (78-98); MEAN PLATELET VOLUME 9.4 FL (7.4-10.4); MONOCYTES # (AUTO) 0.9 X10'3 (0-0.9); MONOCYTES % (AUTO) 7.1 % (2-12); NEUTROPHILS # (AUTO) 10.5 X10'3 (1.8-7.7); NEUTROPHILS % (AUTO) 82.8 % (42-75); PLATELET COUNT 170 X10'3 (140-440); RED CELL DISTRIBUTION WIDTH 14.9 % (11.5-14.5); WHITE BLOOD COUNT 12.7 X10'3 (4.5-11.0)
[2024-06-30 10:07] LABS: ALANINE AMINOTRANSFERASE 18 U/L (12-78); ALBUMIN 2.6 G/DL (3.4-5.0); ALBUMIN/GLOBULIN RATIO 0.5 (1.1-1.5); ALKALINE PHOSPHATASE 97 IU/L (46-116); ANION GAP 9 (8-16); ASPARTATE AMINO TRANSFERASE 20 U/L (10-37); BILIRUBIN,TOTAL 0.5 MG/DL (0.1-1.0); BLOOD UREA NITROGEN 63 MG/DL (7-18); BUN/CREATININE RATIO 13.3 (10.0-20.0); CALCIUM 8.5 MG/DL (8.5-10.1); CHLORIDE 103 MMOL/L (99-107); CREATININE 4.75 MG/DL (0.40-0.90); GLUCOSE 112 MG/DL (70-104); POTASSIUM 4.3 MMOL/L (3.5-5.1); SODIUM 135 MMOL/L (135-145); TOTAL CARBON DIOXIDE 23.5 MMOL/L (24-32); TOTAL PROTEIN 7.6 G/DL (6.4-8.2); eCRCL 13 ML/MIN; eGFR 10 ML/MIN
[2024-06-30] MEDS ORDERED: HYDROmorphone inj. 0.5 MG/0.5 ML DISP.SYRIN IV PRN (15:30)
[2024-06-30] MEDS: HYDROmorphone 1 mg/ml syringe IV PRN (15:51)
[2024-06-30] MEDS: HYDROcodone/acetaminophen 10/325mg tab PO PRN (18:12)
[2024-06-30] MEDS: CefTRIAXone/D5W-Rocephin 1gm 50 ML IV SCH (22:06)
[2024-07-01 06:00] VITALS: BP 117/69; PULSE 88; RESP 16; TEMP 97.6; O2SAT 97
[2024-07-01 06:08] LABS: BASOPHILS % (AUTO) 0.1 % (0-1); EOSINOPHILS % (AUTO) 0 % (0-6); HEMATOCRIT 31.5 % (35.0-45.0); HEMOGLOBIN 10.7 g/dl (12.0-16.0); LYMPHOCYTES # (AUTO) 1.6 X10'3 (1.1-4.8); LYMPHOCYTES % (AUTO) 16.7 % (21-51); MEAN CORPUSCULAR HEMOGLOBIN 30.6 PG (27.0-31.0); MEAN CORPUSCULAR HGB CONC 33.9 g/dL (33.0-36.5); MEAN CORPUSCULAR VOLUME 90.2 FL (78-98); MEAN PLATELET VOLUME 8.8 FL (7.4-10.4); MONOCYTES # (AUTO) 0.7 X10'3 (0-0.9); MONOCYTES % (AUTO) 7.7 % (2-12); NEUTROPHILS # (AUTO) 7.2 X10'3 (1.8-7.7); NEUTROPHILS % (AUTO) 75.5 % (42-75); PLATELET COUNT 171 X10'3 (140-440); RED BLOOD COUNT 3.49 X10'6 (4.20-5.60); WHITE BLOOD COUNT 9.5 X10'3 (4.5-11.0)
[2024-07-01 06:16] LABS: INR 1.1 INR; PROTHROMBIN TIME 11.8 SECONDS (9.0-12.0)
[2024-07-01 06:31] LABS: ALANINE AMINOTRANSFERASE 13 U/L (12-78); ALBUMIN 2.1 G/DL (3.4-5.0); ALBUMIN/GLOBULIN RATIO 0.4 (1.1-1.5); ALKALINE PHOSPHATASE 88 IU/L (46-116); ANION GAP 10 (8-16); ASPARTATE AMINO TRANSFERASE 15 U/L (10-37); BILIRUBIN,TOTAL 0.3 MG/DL (0.1-1.0); BLOOD UREA NITROGEN 59 MG/DL (7-18); CALCIUM 7.7 MG/DL (8.5-10.1); CHLORIDE 106 MMOL/L (99-107); CHOLESTEROL 138 MG/DL (0-200); GLUCOSE 167 MG/DL (70-104); HDL CHOLESTEROL 23 MG/DL (35-60); LDL CHOLESTEROL 78 MG/DL (50-100); MAGNESIUM 1.7 MG/DL (1.5-2.4); PHOSPHORUS 3.8 MG/DL (2.3-4.5); POTASSIUM 4.1 MMOL/L (3.5-5.1); SODIUM 138 MMOL/L (135-145); TOTAL CARBON DIOXIDE 22.3 MMOL/L (24-32); TOTAL PROTEIN 6.8 G/DL (6.4-8.2); TRIGLYCERIDES 132 MG/DL (20-135); eCRCL 21 ML/MIN; eGFR 17 ML/MIN
[2024-07-01 08:00] VITALS: RESP 16; O2SAT 97
[2024-07-01 10:21] VITALS: BP 123/78; PULSE 77; RESP 20; TEMP 97.1; O2SAT 97
[2024-07-01] MEDS ORDERED: ALPRAZolam 0.25mg tablet PO PRN (12:00)
[2024-07-01] MEDS: ALPRAZolam 0.5mg tablet PO PRN (13:19)
[2024-07-01 17:10] VITALS: BP 163/95; PULSE 70; RESP 17; TEMP 97.8; O2SAT 99
[2024-07-01 19:34] VITALS: BP 151/86; PULSE 84; RESP 14; O2SAT 99
[2024-07-01 22:00] VITALS: BP 155/98; PULSE 63; RESP 16; TEMP 97.3; O2SAT 100
[2024-07-02 06:00] VITALS: BP 146/94; PULSE 76; RESP 16; TEMP 98; O2SAT 96
[2024-07-02 06:08] LABS: BASOPHILS % (AUTO) 0.7 % (0-1); EOSINOPHILS # (AUTO) 0.1 X10'3 (0-0.9); HEMATOCRIT 33.7 % (35.0-45.0); HEMOGLOBIN 11.4 g/dl (12.0-16.0); LYMPHOCYTES # (AUTO) 2.2 X10'3 (1.1-4.8); LYMPHOCYTES % (AUTO) 31.1 % (21-51); MEAN CORPUSCULAR HEMOGLOBIN 30.4 PG (27.0-31.0); MEAN CORPUSCULAR HGB CONC 33.7 g/dL (33.0-36.5); MEAN CORPUSCULAR VOLUME 90.2 FL (78-98); MONOCYTES # (AUTO) 0.8 X10'3 (0-0.9); NEUTROPHILS # (AUTO) 3.9 X10'3 (1.8-7.7); NEUTROPHILS % (AUTO) 56.2 % (42-75); PLATELET COUNT 216 X10'3 (140-440); RED BLOOD COUNT 3.74 X10'6 (4.20-5.60); RED CELL DISTRIBUTION WIDTH 14.4 % (11.5-14.5)
[2024-07-02 06:23] LABS: INR 1.1 INR; PROTHROMBIN TIME 11.3 SECONDS (9.0-12.0)
[2024-07-02 06:34] LABS: ALANINE AMINOTRANSFERASE 22 U/L (12-78); ALBUMIN/GLOBULIN RATIO 0.4 (1.1-1.5); ALKALINE PHOSPHATASE 94 IU/L (46-116); ANION GAP 10 (8-16); ASPARTATE AMINO TRANSFERASE 20 U/L (10-37); BILIRUBIN,TOTAL 0.2 MG/DL (0.1-1.0); BLOOD UREA NITROGEN 48 MG/DL (7-18); BUN/CREATININE RATIO 25.1 (10.0-20.0); CALCIUM 8.3 MG/DL (8.5-10.1); CHLORIDE 109 MMOL/L (99-107); CREATININE 1.91 MG/DL (0.40-0.90); GLUCOSE 134 MG/DL (70-104); MAGNESIUM 1.5 MG/DL (1.5-2.4); PHOSPHORUS 3.5 MG/DL (2.3-4.5); POTASSIUM 3.8 MMOL/L (3.5-5.1); SODIUM 140 MMOL/L (135-145); TOTAL PROTEIN 6.9 G/DL (6.4-8.2); eCRCL 33 ML/MIN; eGFR 29 ML/MIN
[2024-07-02 07:58] VITALS: RESP 16; O2SAT 97
[2024-07-02 08:05] VITALS: BP 148/92; PULSE 64; RESP 16; TEMP 97.7; O2SAT 97
[2024-07-02 11:00] VITALS: BP 157/103; PULSE 62; RESP 18; TEMP 98; O2SAT 97
[2024-07-02] MEDS: ondansetron/PF 4mg/2ml inj IV PRN (11:13)
[2024-07-02] MEDS ORDERED: PHEN-786 PO (12:39)
[2024-07-02] MEDS ORDERED: CEPH500C2 PO (12:39)
[2024-07-04 05:15] LABS: HEPATITIS C VIRUS ANTIBODY Reactive (Non Reactive)
== END 2024-07-02 15:00 | disposition home or self-care (01) | DRG 463 ==
LOC: ER 21:14 → ED HOLD 06-30 01:54 → ORTHO 4S 06-30 03:51
PROVIDERS: ADMIT Internal Medicine Critical Care Medicine; ATTEND Family Medicine
PROC: BT1F1ZZ Fluoroscopy of Left Kidney, Ureter and Bladder using Low Osmolar Contrast (ICD-10-PCS; 2024-06-30)
PROC: 0T9B80Z Drainage of Bladder with Drainage Device, Via Natural or Artificial Opening Endoscopic (ICD-10-PCS; 2024-06-30)
PROC: 0T778DZ Dilation of Left Ureter with Intraluminal Device, Via Natural or Artificial Opening Endoscopic (ICD-10-PCS; principal; 2024-06-30 07:18)
DX: N13.6 Pyonephrosis (principal); N17.0 Acute kidney failure with tubular necrosis; E87.8 Other disorders of electrolyte and fluid balance, not elsewhere classified; E87.1 Hypo-osmolality and hyponatremia; E11.9 Type 2 diabetes mellitus without complications; F15.90 Other stimulant use, unspecified, uncomplicated; N20.2 Calculus of kidney with calculus of ureter; K75.9 Inflammatory liver disease, unspecified; N26.1 Atrophy of kidney (terminal); F41.9 Anxiety disorder, unspecified; I10 Essential (primary) hypertension; Z87.891 Personal history of nicotine dependence; Z59.00 Homelessness unspecified; Z90.5 Acquired absence of kidney
CPT/HCPCS: 36415; 74022; 74176; 74420; 76000; 80053; 80061; 80305; 81001; 81025; 82436; 82570; 82948; 83036; 83605; 83690; 83735; 83880; 84100; 84132; 84145; 84300; 84484; 85025; 85610; 86803; 86885; 86900; 86901; 87040; 87077; 87081; 87088; 87186; 87522; 93306; 97116; 97161; 99285; A4618; A5200; C1758; C1769; C2617; G0378; J0696; J1100; J1171; J2003; J2250; J2405; J2704; J3010; J3480; J7030; J7120; Q9967